=== PATIENT | male | born 1970 | race Caucasian/White ===

== ENCOUNTER 2019-12-07 12:40 | Emergency (ER) | payer BC, OTHER ==
--- NOTE | 2019-12-07 12:50 | PDOC ---
Attending Attestation - Resident Resident Name: Regan Daniel - ED Attending Attestation I have performed the following: I have examined & evaluated the patient, The case was reviewed & discussed with the resident, I agree w/resident's findings & plan, Exceptions are as noted - HPI HPI: 12/07/19 13:28 49yo male with hx of R arm dislocation and anxiety, knee sx x 2 presents for eval of R forearm and wrist pain s/p a FOOSH injury. Pt was gardening outside and slipped in the rain. Pt with R forearm pain. No elbow or shoulder pain. NO headache. No head injury or loc. Pt states he is able to move his fingers and sensation is intact. Pt with pulses intact. Denies back pain. No other complaints. Pt ambulated into the Er with a steady gait. - Physicial Exam PE: 12/07/19 13:30 Gen: aaox3, uncomfortable heent: eomi, mmm heart: +s1s2 reg lungs: cta b/l abd: soft, nt/nd +bs ext: R forearm with a deformity concerning for a colles fx, pulses intact, brisk cap refill distal, wiggles his fingers, neurovasc intact distal, ice applied, no elbow ttp, no shoulder ttp, no clavicle ttp, no laceration - Medical Decision Making 12/07/19 13:37 a/p: 49yo male with R forearm fx -xrays ordered -ice applied -neurovasc intact distal -most likely a colles fx and will need a hematoma block, reduction and splinting -will need orthopedic follow up -percocet for pain 12/07/19 14:08 xrays shows a comminuted distal radius/ulnar styloid fx hematoma block, arm being hung to help reduce fx will need sugartong splint 12/07/19 15:16 repeat xrays shows better alignment of the fx stable for dc to home discussed follow up and most likely need for sx discussed need to see Dr. Leiva Discharge - Discharge Information Problems reviewed: Yes Clinical Impression/Diagnosis: Injury of right upper arm Qualifiers: Encounter type: initial encounter Qualified Code(s): S49.91XA - Unspecified injury of right shoulder and upper arm, initial encounter Colles' fracture Qualifiers: Encounter type: initial encounter Fracture type: closed Laterality: right Qualified Code(s): S52.531A - Colles' fracture of right radius, initial enc ounter for closed fracture Condition: Stable Disposition: HOME - Admission No - Additional Discharge Information Prescriptions: Oxycodone HCl/Acetaminophen [Percocet 5-325 mg Tablet] 1 tab PO Q6H PRN #15 tablet MDD 4 PRN Reason: Pain Ondansetron [Zofran *Odt*] 4 mg SL TID PRN #15 od.tablet PRN Reason: Nausea - Follow up/Referral Referrals: Andrea Appiah DO [Staff Physician] - Efrain Buitrago DO [Staff Physician] - Manny Leiva MD [Staff Physician] - - Patient Discharge Instructions Patient Printed Discharge Instructions: How to Use a Sling, DI for Forearm Fracture Additional Instructions: Please call Dr. Leiva first thing tomorrow to schedule a follow up appointment. Please keep the splint clean and dry. Please keep the arm elevated. Please apply ice 20 min on and 20 min off. Please take all medication as prescribed. Please do not drive or operate heavy machinery while taking the percocet. Please return to the ER with any further concerns or complaints. Print Language: BHUTANESE - Post Discharge Activity Work/Back to School Note: Back to Work
--- NOTE | 2019-12-07 12:57 | PDOC ---
History of Present Illness - General Chief Complaint: Injury Stated Complaint: INJURY TO RIGHT ARM Time Seen by Provider: 12/07/19 12:49 History Source: Patient Exam Limitations: No Limitations - History of Present Illness Initial Comments: David is a 49 yo M w a hx of anxiety who presents to the [facility] with right arm pain. He was doing gardening work in the yard, slipped on an object, lost his balance and fell on an outstretched right arm. After he fell down on the arm to break his fall he instantly had severe right arm pain. He states he is able to feel everything and can move his hand but when he squeezes his right fingers it hurts because of the arm pain. Denies other injuries, denies elbow or shoulder pain. Denies nausea, vomiting, fevers, chills, numbness, tingling, or rashes PCP: Dr. Albarado at [facility] PSH: b/l knee surgeries Allergies: NKA, NKDA Social Hx: Smokes a few cigarettes daily, recreational marijuana usage. Denies alcohol or illicit drugs. Past History - Medical History Allergies/Adverse Reactions: Allergies Allergy/AdvReac Type Severity Reaction Status Date / Time No Known Allergies Allergy Unverified 12/07/19 12:44 Home Medications: Ambulatory Orders Alprazolam [Xanax] 2 mg PO HS 12/07/19 Ondansetron [Zofran *Odt*] 4 mg SL TID PRN #15 od.tablet 12/07/19 Oxycodone HCl/Acetaminophen [Percocet 5-325 mg Tablet] 1 tab PO Q6H PRN #15 tablet MDD 4 12/07/19 Quetiapine Fumarate [Seroquel -] 1 mg PO HS 12/07/19 COPD: No Psychiatric Problems: Yes (ANXIETY) - Psycho-Social/Smoking History Smoking History: Current some day smoker Number of Cigarettes Smoked Daily: 2 Information on smoking cessation initiated: Yes - Substance Abuse Hx (Audit-C & DAST Scrn) How often the patient has a drink containing alcohol: Never Score: In Men: 4 or > Positive; In Women: 3 or > Positive: 0 Screen Result (Pos requires Nsg. Audit-10AR): Negative In the last yr the pt used illegal drug/Rx for NonMed reason: Yes Score: Yes response is considered Positive: 1 Screen Result (Positive result requires Nsg. DAST-10): Positive Review of Systems - Review of Systems Able to Perform ROS?: Yes Comments:: CONSTITUTIONAL: Absent: fever, no chills, no fatigue EYES: Absent: visual changes ENT: Absent: ear pain, no sore throat CARDIOVASCULAR: Absent: chest pain, no palpitations RESPIRATORY: Absent: cough, no SOB GI: Absent: abdominal pain, no nausea, no vomiting, no constipation, no diarrhea GENITOURINARY: Absent: dysuria, no frequency, no hematuria MUSKULOSKELETAL: Present: Arthralgia Absent: back pain, no myalgia SKIN: Absent: rash NEURO: Absent: headache *Physical Exam - Vital Signs Last Vital Signs Temp Pulse Resp BP Pulse Ox 98 F 82 16 121/82 97 12/07/19 12:44 12/07/19 12:44 12/07/19 12:44 12/07/19 12:44 12/07/19 12:44 - Physical Exam GENERAL: Well-appearing, well-nourished. No apparent distress. HEENT: Normocephalic, atraumatic. PERRL, EOM intact. CARDIOVASCULAR: Normal S1, S2. Regular rate and rhythm. PULMONARY: No evidence of respiratory distress. Lungs clear to auscultation bilaterally. No wheezing, rales or rhonchi. ABDOMEN: Soft, non-distended, non-tender. RIGHT ARM: There is a dinner fork deformity along the right distal forearm/wrist. The distal radius is exquisitely tender to palpation. - 5/5 sensation in right arm compared to left - 2+ radial and ulnar pulses equal to left arm - Full strength and ROm at all 5 fingers - Normal strength and ROM at elbow and shoulder. EXTREMITIES: Normal ROM in other 3 extremities. SKIN: Warm, dry. No rash NEUROLOGICAL: No focal neurological deficits. Procedures - Splinting Splint Location: Right: Forearm Pre-Proc Neuro Vasc Exam: normal Hand-Made Type: orthoglass Splint Type: Yes: Sugar Tong Post-Proc Neuro Vasc Exam: normal Ricardo Bandage: yes, 3" Sling: Yes Complications: No Post splint xray: Yes Good repositioning: Yes - Joint Reduction Right Joint Reduction Site: right: Colles' Fracture Pre-Procedure NV Exam: normal Conscious Sedation: No Reduction Attempts: 1 Anesthetic: 1% Lidocaine Amount (mL): 10 Post-Procedure NV Exam: normal Complications: No Post Joint Reduction Film: joint reduced Splint: Yes Immobilized: Yes Medical Decision Making - Medical Decision Making David is a 49 yo M w a hx of anxiety who presents to the [facility] ER with right arm pain. He was doing gardening work in the yard, slipped on an object, lost his balance and fell on an outstretched right arm. After he fell down on the arm to break his fall he instantly had severe right arm pain. He states he is able to feel everything and can move his hand but when he squeezes his right fingers it hurts because of the arm pain. Vital Signs Temp Pulse Resp BP Pulse Ox 98 F 82 16 121/82 97 12/07/19 12:44 12/07/19 12:44 12/07/19 12:44 12/07/19 12:44 12/07/19 12:44 DDx IBNLT: Distal radius fx, hand fx, neurovascular injury less likely given normal sensation, strength, and pulses Plan: XR, analgesia, reduce, splint, ortho FU XR: Colles fx with comminuted distal radius fx, distal head of radius with dorsal displacement, ulnar styloid fx as well Splint: Sugar tong splint applied Post-reduction film: Lateral X-ray shows good alignment Re-assessment: Patient feeling better after reduction and splint application. The patient appears clinically sober, has no evidence of clinical intoxication, is A&O x4, has no sustained nystagmus, and appears to be capable and have capacity to make reasonable decisions. The patient states they are currently in the emergency department, knows who the president is, states the correct time, correct day, and correct month. The patient is ambulatory in ER and has walked around the nursing station multiple times with a straight and steady gait, and is not ataxic. Tolerating PO well, ate a sandwich and drank juice. Denies having any SI or HI. Patient states will not be driving home. I discussed the physical exam findings, ancillary test results and final diagnoses with the patient. I answered all of the patient's questions. The patient was satisfied with the care received and felt comfortable with the discharge plan and treatment plan. The patient will call their primary care physician within 24 hours to arrange follow-up and will return to the Emergency Department with any new, persistent or worsening symptoms. Disposition: Home with Ortho/Hand follow up tomorrow Please note, this clinical encounter is taking place during a federal and state health care emergency attributable to the novel Vázquez Virus pandemic. The [employer] of the Department of Health and Human Services has declared, pursuant to the Public Health Service Act 319F-3 (42 U.S.C. 247d-6d), that a covered persons activities related to medical countermeasures against COVID-19 will be immune from liability under Federal and State law. Discharge - Discharge Information Problems reviewed: Yes Clinical Impression/Diagnosis: Injury of right upper arm Qualifiers: Encounter type: initial encounter Qualified Code(s): S49.91XA - Unspecified injury of right shoulder and upper arm, initial encounter Colles' fracture Qualifiers: Encounter type: initial encounter Fracture type: closed Laterality: right Qualified Code(s): S52.531A - Colles' fracture of right radius, initial encounter for closed fracture Condition: Stable Disposition: HOME - Admission No - Additional Discharge Information Prescriptions: Oxycodone HCl/Acetaminophen [Percocet 5-325 mg Tablet] 1 tab PO Q6H PRN #15 tablet MDD 4 PRN Reason: Pain Ondansetron [Zofran *Odt*] 4 mg SL TID PRN #15 od.tablet PRN Reason: Nausea - Follow up/Referral Referrals: Manny Leiva MD [Staff Physician] - Andrea Appiah DO [Staff Physician] - Efrain Buitrago DO [Staff Physician] - - Patient Discharge Instructions Patient Printed Discharge Instructions: How to Use a Sling, DI for Forearm Fracture Additional Instructions: Please call Dr. Leiva first thing tomorrow to schedule a follow up appointment. Please keep the splint clean and dry. Please keep the arm elevated. Please apply ice 20 min on and 20 min off. Please take all medication as prescribed. Please do not drive or operate heavy machinery while taking the percocet. Please return to the ER with any further concerns or complaints. Print Language: CENTRAL AFRICAN - Post Discharge Activity Work/Back to School Note: Back to Work
[2019-12-07] MEDS ORDERED: IBUPROFEN 600 MG TABLET (FP) PO ONE (13:01)
[2019-12-07] MEDS ORDERED: LIDOCAINE HCL 1%, 10 MG/ML (50 mL VIAL) SQ ONE (13:02)
[2019-12-07 13:15] VITALS: BP 121/82; PULSE 82; TEMP 98; BMI 28.7
[2019-12-07] MEDS ORDERED: LIDOCAINE HCL 1%, 10 MG/ML (20ML VIAL) ONE (13:15)
[2019-12-07] MEDS: ACETAMINOPHEN 325 MG TABLET (FP) PO ONE ×2 (13:18→13:59)
[2019-12-07] MEDS ORDERED: ONDANSETRON 4 MG TABLET PO ONE (13:53)
[2019-12-07] MEDS ORDERED: ONDANSETRON *ODT* 4 MG TABLET ONE (13:56)
[2019-12-07] MEDS ORDERED: ONDANSETRON *ODT* 4 MG TABLET SL ONE (14:08)
== END 2019-12-07 15:20 | disposition home or self-care (01) ==
LOC: FER 12:40
DX: S49.91XA Unspecified injury of right shoulder and upper arm, initial encounter (principal); S52.531A Colles' fracture of right radius, initial encounter for closed fracture
CPT/HCPCS: 73090-TC-RT-FY; 73110-TC-RT-FY; 73130-TC-RT-FY; 99284-25; Q0162